=== PATIENT | female | born 1950 | race Caucasian/White ===

== ENCOUNTER 2018-08-06 10:09 | Inpatient (IN) ==
--- NOTE | 2018-08-06 11:26 | EKG Report ---
Test Performed on : 08/06/2018 11:17:38 AM Test Reason : hyperkalemia Blood Pressure : / mmHG Vent. Rate : 084 BPM Atrial Rate : 084 BPM P-R Int : 166 ms QRS Dur : 092 ms QT Int : 378 ms P-R-T Axes : 068 072 094 degrees QTc Int : 446 ms Normal sinus rhythm. Biatrial enlargement Left ventricular hypertrophy ST elevation, consider early repolarization, pericarditis, or injury Abnormal ECG No previous ECGs available Unconfirmed Result
--- NOTE | 2018-08-06 12:05 | Diag Imaging Result Doc PS360 ---
CHEST-1 VIEW - 08/06/2018 INDICATION: hyperkaalemia COMPARISON: None FINDINGS: There is cardiomegaly and mild pulmonary vascular congestion. There is perhaps some minimal blunting of the right lateral costophrenic angle, nonspecific. No substantial infiltrates or edema. IMPRESSION: Cardiomegaly and pulmonary vascular congestion. Electronically signed by Javed Diaz 08/06/2018 12:03 PM
[2018-08-06] MEDS ORDERED: ULTRAM PO PRN (12:17)
[2018-08-06] MEDS ORDERED: TYLENOL PO PRN (12:18)
[2018-08-06 12:23] LABS: MCH 24.7 PG (27-31); MCHC 32.2 g/dL (33-37); MCV 76.8 FL (81-99); MPV 9.7 FL (7.4-10.4); RBC 7.68 XMIL (4.2-5.4); RDW 18.5 % (11.5-14.5); WBC 19.71 X1000 (4.8-10.8)
[2018-08-06] MEDS: D5 1/2 NS 1,000 ML IV SCH (12:54)
[2018-08-06] MEDS ORDERED: KAYEXALATE PO ONE (13:00)
[2018-08-06 13:13] LABS: ALB/GLOB RATIO 1.6; ALBUMIN 4.1 g/dL (3.5-5.0); CALCIUM 10.4 mg/dL (8.8-10.2); CREATININE 1.1 mg/dL (0.5-0.9); POTASSIUM 5.4 mmol/L (3.5-5.1); TOTAL BILIRUBIN 0.37 mg/dL (0.20-1.00); TOTAL PROTEIN 6.6 g/dL (6.3-8.3)
[2018-08-06 13:15] LABS: IRON SATURATION 9 %; TIBC 384 ug/dL; TOTAL IRON 33 ug/dL (49-151); UNBOUND IRON 351 ug/dL (112-346)
[2018-08-06 13:39] LABS: FERRITIN 21 ng/mL (13-150)
[2018-08-06 14:53] LABS: URINE SOURCE CLEAN CATCH
[2018-08-06 15:09] LABS: BILIRUBIN URINE NEGATIVE (NEGATIVE); BLOOD URINE NEGATIVE (NEGATIVE); COLOR YELLOW; GLUCOSE URINE NEGATIVE (NEGATIVE); KETONE URINE NEGATIVE (NEGATIVE); LEUKOCYTES URINE NEGATIVE (NEGATIVE); NITRITE URINE NEGATIVE (NEGATIVE); PROTEIN URINE NEGATIVE (NEGATIVE); SP GRAVITY URINE 1.005; TURBIDITY URINE CLEAR (CLEAR); UR EPITHELIAL CELLS <10 /HPF (<10); URINE BACTERIA NEGATIVE /HPF; URINE RBC <10 /HPF (<10); URINE WBC <10 /HPF (<10); UROBILINOGEN URINE NORMAL (NORMAL)
[2018-08-06] MEDS ORDERED: AMBIEN PO PRN (15:31)
--- NOTE | 2018-08-06 19:06 | HISTORY AND PHYSICAL ---
HISTORY OF PRESENT ILLNESS: Ms. Benites, a 68-year-old white female with a known case of hypertension, has been having generalized weakness, severe dizziness, and intermittent headaches. She was found to have a very high potassium which was 6.5, with severe pancytopenia with RBCs, WBCs, and platelets all increased. She was hospitalized for this reason. She had generalized weakness. SOCIAL HISTORY: Reveal she has a history of smoking about a half to 1 pack of cigarettes per day for last 43 years. Does not drink ALLERGIES: She is not allergic to any medications. PAST SURGICAL HISTORY: Reveals history of bladder repair and hysterectomy. REVIEW OF SYSTEMS: Other than what has been mentioned is noncontributory. MEDICATIONS: She is on lisinopril 10 mg, which is her only medication. REVIEW OF SYSTEMS: Unremarkable. PHYSICAL EXAMINATION: GENERAL: The patient, who is a 68-year-old white female, is alert and oriented. VITAL SIGNS: Reveal temperature normal, pulse 85 per minute, respiratory rate 16 per minute, blood pressure 130/66. HEAD: Normocephalic. Pupils PERRLA. Fundus examination not done. NECK: Supple. JVP normal. ENT examination unremarkable. There is no evidence of lymphadenopathy, thyroid enlargement. EXTREMITIES: No pedal edema, calf tenderness, anemia, cyanosis or clubbing. Pedal pulses well felt. BREAST EXAM: Not done. CHEST: Normal inspection. LUNGS: Clear on auscultation. PMI in the normal position. HEART: Heart sounds normal. No murmur, gallop or rub noted. ABDOMEN: Nondistended. Hernial orifices normal. No guarding, rigidity, free fluid, masses, or organomegaly. Bowel sounds normal. RECTAL: Deferred. NEUROLOGIC: Higher functions, the patient apprehensive. Cranial nerves normal. Motor and sensory system examination unremarkable. Deep tendon reflexes normal. Plantars downgoing. Skull and spine examination normal for age. No cerebellar signs or signs of meningeal irritation. Normal motor exam. SKIN: Unremarkable. IMPRESSION: The patient has hyperkalemia. We will keep her on telemetry. Plan to give Kayexalate and get potassium down. We will also investigate her for significant erythrocytosis, thrombocytosis, and leukocytosis. cc: Angel Lord MD
[2018-08-07 06:44] LABS: AGAP 10; BUN 17 mg/dL (8-22); CALCIUM 8.7 mg/dL (8.8-10.2); CHLORIDE 92 mmol/L (98-107); COSMO 263; CREATININE 0.9 mg/dL (0.5-0.9); ESTIMATED GFR > 60; GLUCOSE 78 mg/dL (70-104); POTASSIUM 4.3 mmol/L (3.5-5.1); SODIUM 131 mmol/L (136-145); TCO2 29 mmol/L (25-35)
[2018-08-07] MEDS ORDERED: PRINIVIL PO SCH (09:00)
--- NOTE | 2018-08-07 09:05 | PROGRESS NOTE ---
DATE: 08/07/2018 SUBJECTIVE: Ms. Benites was admitted yesterday for hyperkalemia. Potassium earlier was 6.5, came down to 5.4, and now it is normal. However, she has hyponatremia and mild hypocalcemia, partly because of the fluid therapy. She has brady cytosis, and she is being followed by Dr. Ramos. She is a heavy smoker, and that could give her increase in the red blood cell count. Overall condition is otherwise stable today. -1 cc: Angel Lord MD
[2018-08-07 12:17] LABS: BASO# 0.13 X1000 (0.0-0.2); BASO% 0.6 % (0.0-0.8); EOS# 0.96 X1000 (0.0-0.7); EOS% 4.7 % (0.0-10.0); HEMATOCRIT 54.6 % (37.0-47.0); IMM GRAN# 0.14 X1000 (0.0-0.04); IMM GRAN% 0.7 % (0.0-0.5); LYMPH# 2.34 X1000 (1.2-3.4); LYMPH% 11.6 % (20.5-51.1); MCH 24.4 PG (27-31); MCHC 31.1 g/dL (33-37); MCV 78.3 FL (81-99); MONO# 1.55 X1000 (0.11-0.59); MONO% 7.7 % (1.7-9.3); MPV 9.9 FL (7.4-10.4); NEUT# 15.12 X1000 (1.4-6.5); NEUT% 74.7 % (42.2-75.2); PLT 655 X1000 (130-400); RBC 6.97 XMIL (4.2-5.4); RDW 17.9 % (11.5-14.5); WBC 20.24 X1000 (4.8-10.8)
[2018-08-07 12:37] LABS: BANDS 4 % (0-1); EOS 3 % (1-10); LYMPHS 11 % (21-51); MONO 8 % (1-9); SEGS 74 % (42-75)
[2018-08-07] MEDS: D5 1/2 NS 1,000 ML IV SCH (13:00)
--- NOTE | 2018-08-07 14:20 | HEMO/ONC PROGRESS NOTE ---
DATE: 08/07/2018 SUBJECTIVE: Patient says she feels slightly better at this time. Patient has no new complaints. OBJECTIVE: Vital Signs: Temperature 97.6 degrees, heart rate 80, respiratory 16, blood pressure 136/77, saturation 99% on room air. General: Patient is awake lying in bed, no acute distress noted. HEENT: Anicteric. Mucous membranes very moist. Cardiovascular: S1, S2. Regular rhythm. Chest: Bilateral breath sounds clear to auscultation. Abdomen: Soft, nontender, bowel sounds present all 4 quadrants. Neurologic: Alert and oriented x3. No focal deficits noted. LABORATORY DATA: White blood cell count 20.24, hemoglobin 17.2, hematocrit 54.6, platelets 655,000, potassium 4.3, BUN 17, creatinine 0.9. ASSESSMENT AND PLAN: 1. Polycythemia: Patient's hemoglobin, hematocrit has slightly improved after therapeutic phlebotomy today hemoglobin 17.2, hematocrit 54.6, patient will receive another therapeutic phlebotomy after remove 250 mL. We will continue to monitor very closely. Labs still pending for further evaluation. Continue to monitor wait for those. 2. Hyperkalemia. Potassium is back to normal today is 4.3. Continue recommendations per primary medical team. Plan of care discussed Dr. Ramos. Dictated by ADELA Guidry for Srinivas Ramos MD cc: ADELA Guidry MD Amit V. Vora, MD
--- NOTE | 2018-08-07 14:25 | HEMO/ONC CONSULTATION ---
DATE: 08/06/2018 CHIEF COMPLAINT: We are being consulted for further evaluation of polycythemia. HISTORY OF PRESENT ILLNESS: Ms. Benites is a 68-year-old female that recently had been having problems with increased amount of headaches, weakness, and generalized dizziness. Was recently seen at her primary care provider's office with these complaints and also found to have an elevated potassium of 6.5 and polycythemia. Due to her symptoms, was admitted for further evaluation and treatment. PAST MEDICAL HISTORY: Hypertension. PAST SURGICAL HISTORY: Bladder repair and hysterectomy. SOCIAL HISTORY: Smokes about a half a pack to a pack of cigarettes per day. Denies any alcohol or illicit drug use. FAMILY HISTORY: Noncontributory. ALLERGIES: No known drug allergies. HOME MEDICATIONS: Lisinopril. REVIEW OF SYSTEMS: Negative unless mentioned in the HPI. PHYSICAL EXAMINATION: Vital Signs: Temperature of 97.7 degrees, heart rate 75, respiratory rate 16, blood pressure 134/62, saturating 96% on room air. General: Patient is awake, lying in bed. No acute distress noted. HEENT: Anicteric. Pupils PERRLA. Mucous membranes appear to be moist. Neck: Supple. Trachea midline. No JVD. Lymph Node Survey: No palpable lymphadenopathy. Chest: Bilateral breath sounds clear to auscultation. Cardiovascular: Normal S1, S2. Regular rate and rhythm. Abdomen: Soft, nontender. Bowel sounds present in all 4 quadrants. No hepatosplenomegaly noted. Skin: Warm, dry, and intact. No petechiae, no clubbing, no rashes, no cyanosis. Neurologic: Alert and oriented x3. No focal deficits noted. LABORATORY DATA: White blood cell count 19.71, hemoglobin 19.0, hematocrit 59.0, platelets 685,000. Potassium 5.4, BUN 18, creatinine 1.1. ASSESSMENT AND PLAN: 1. Polycythemia: Polycythemia workup has been ordered. Some labs are pending at this time. The patient also has had therapeutic phlebotomy of 500 mL today. We are waiting on further lab work at this time. We will continue to monitor her closely. 2. Hyperkalemia: Patient to continue recommendations per her primary medical team. 3. Hypertension: Continue home medications. Continue recommendations per primary medical team. Plan of care was discussed with Dr. Ramos. Dictated by ADELA Guidry for Srinivas Ramos MD Patient seen and examined. As above. We are evaluating her for polycythemia. She drinks plenty of water and minimal caffeinated beverages. She denies DVT or stroke type symptoms. She reports of headache. She denies glandular enlargement in the neck axilla or groin or hepatosplenomegaly. She denies obstructive sleep apnea-type symptoms. We will obtain lab evaluation for polycythemia vera. Proceed with phlebotomy today. Baby ASA daily. Srinivas Ramos M.D. cc: ADELA Guidry MD Amit V. Vora, MD [facility]
[2018-08-07] MEDS ORDERED: NICODERM PATCH TD ONE (18:21)
[2018-08-08 07:05] LABS: BASO# 0.23 X1000 (0.0-0.2); BASO% 1.4 % (0.0-0.8); EOS# 0.94 X1000 (0.0-0.7); EOS% 5.6 % (0.0-10.0); HEMATOCRIT 51.8 % (37.0-47.0); HEMOGLOBIN 16.7 g/dL (12.0-16.0); IMM GRAN# 0.06 X1000 (0.0-0.04); IMM GRAN% 0.4 % (0.0-0.5); LYMPH% 13.7 % (20.5-51.1); MCH 25.2 PG (27-31); MCHC 32.2 g/dL (33-37); MCV 78.1 FL (81-99); MONO# 1.54 X1000 (0.11-0.59); MONO% 9.2 % (1.7-9.3); MPV 9.6 FL (7.4-10.4); NEUT# 11.71 X1000 (1.4-6.5); NEUT% 69.7 % (42.2-75.2); PLT 638 X1000 (130-400); RBC 6.63 XMIL (4.2-5.4); WBC 16.78 X1000 (4.8-10.8)
[2018-08-08 07:49] VITALS: BP 115/68
--- NOTE | 2018-08-08 08:30 | HEMO/ONC PROGRESS NOTE ---
DATE: 08/08/2018 SUBJECTIVE: Patient says she continues to feel better at this time. Patient denies any new complaints. OBJECTIVE: Vital Signs: Temperature 97.4 degrees, heart rate 78, respiratory rate 20, blood pressure 115/68, saturation 96% on room air. General: Patient is awake, lying in bed, no acute distress noted. HEENT: Anicteric. Pupils PERRLA. Mucous membranes moist. Cardiovascular: S1, S2. Regular rate and rhythm. Chest: Bilateral breath sounds clear to auscultation. Abdomen: Soft, nontender. Bowel sounds present all 4 quadrants. Neurologic: Alert and oriented x3. No focal deficits noted. LABORATORY DATA: White count 16.78, hemoglobin 16.7, hematocrit of 51.8, platelets are 638,000. ASSESSMENT AND PLAN: Polycythemia: Hemoglobin and hematocrit continue to improve. The patient is status post 2 therapeutic phlebotomies. Continue to monitor closely for the lab work still pending. Waiting on those labs at this time. OK for discharge from our standpoint. Plan of care discussed with Dr. Ramos. Dictated by ADELA Guidry for Srinivas Ramos MD Patient seen and examined. As above. Srinivas Ramos M.D. cc: ADELA Guidry MD Amit V. Vora, MD MTDD
--- NOTE | 2018-08-08 08:52 | PROGRESS NOTE ---
DATE: 08/08/2018 SUBJECTIVE: Ms. Benites is doing better. She is still very tense so we will put her on Ativan 0.5 mg b.i.d., see if she can tolerate. Her pancytopenia has been down. White count is down to 16.78, hemoglobin is down to 16.7, platelet count down to 638,000. Her electrolyte status is better. Potassium is 4.3, sodium is still 131. We will discharge her today. -3 cc: Angel Lord MD
[2018-08-08] MEDS ORDERED: ATIVAN PO SCH (09:00)
--- NOTE | 2018-08-09 09:27 | DISCHARGE SUMMARY ---
ADMISSION DATE: 08/06/2018 DISCHARGE DATE: 08/08/2018 DIAGNOSIS OF ADMISSION: Ms. Benites was admitted with hyperkalemia as well as polycythemia and pancytosis. LABORATORY DATA: In the hospital chest x-ray revealed presence of cardiomegaly and pulmonary vascular congestion. EKG had revealed normal sinus rhythm, biatrial enlargement, left ventricular hypertrophy, ST elevation, consider early repolarization. LAB DATA: Revealed initial white count was 19.71, hemoglobin was 19, hematocrit 59, platelet count was 685,000. On 08/08/2018 after 2 trials of phlebotomy the white count came down to 16.78, hemoglobin down to 16.7, and platelet count of 638,000. Potassium initially was 6.5 and it did come down to 5.4 and finally 4.3. BUN and creatinine were normal. B12 level was more than 2000. Folate level was more than 40. Erythropoietin levels were somewhat low it was 1.1, normal being 2.6 to 18.5, iron was 33 by total iron-binding capacity was 384, % saturation was 9%. Urinalysis was negative. JAK2 to mutation results were interpreted BC are ABL, no transcripts were detected. COURSE IN THE HOSPITAL: She was given IV fluids. Initially Kayexalate was given. Dr. Ramos was consulted. He did a phlebotomy twice. He wants to follow her later on. IMPRESSION: 1. Pancytosis, possibly polycythemia. 2. Patient has hypertension with hypertensive heart disease. 3. Had hyperkalemia reveals. I will follow her in about 7 days. According to her daughter she has severe anxiety and she needed some medications for stress. We gave her Ativan 0.5 mg b.i.d., 60 tablets. We will see the response. cc: Angel Lord MD
== END 2018-08-08 09:39 | disposition home or self-care (01) | DRG 641 ==
LOC: DIRADM 10:09 → 4N 10:44
PROVIDERS: ADMIT Internal Medicine; ATTEND Internal Medicine
CPT/HCPCS: 71010; 71045; 80048; 80053; 81001; 81206; 81207; 81208; 81270; 82607; 82668; 82728; 82746; 83540; 83550; 83615; 85025; 85027; 85651; 93005; 93010; 99195; A9270

== ENCOUNTER 2019-05-20 09:16 | Inpatient (IN) ==
[2019-05-20] MEDS ORDERED: SOLU-MEDROL IV ONE (10:13)
[2019-05-20] MEDS ORDERED: DUONEB (A & A) INH ONE (10:13)
--- NOTE | 2019-05-20 10:18 | Diag Imaging Result Doc PS360 ---
EXAM: CHEST-PORTABLE INDICATION: cold symptoms TECHNIQUE: One view COMPARISON: 08/06/2018 FINDINGS: There is a right basilar airspace consolidation that obscures the right heart border suggesting pneumonia. There is also likely a component of atelectasis as well. There is no discrete pleural fluid collection or pneumothorax. The cardiac silhouette is borderline to mildly prominent but stable. IMPRESSION: Right basilar airspace consolidation suggesting pneumonia, likely with superimposed atelectasis. Electronically signed by Ervin Davidson 05/20/2019 10:15 AM
[2019-05-20] MEDS ORDERED: ZITHROMAX 500 MG/NS 500 MG/250 ML IVPB IV ONE (10:21)
[2019-05-20 10:25] LABS: URINE SOURCE CLEAN CATCH
[2019-05-20] MEDS ORDERED: ROCEPHIN 1 GM in NS 50 ML IV SCH (10:30)
[2019-05-20 10:31] LABS: BILIRUBIN URINE NEGATIVE (NEGATIVE); BLOOD URINE NEGATIVE (NEGATIVE); COLOR YELLOW; GLUCOSE URINE NEGATIVE (NEGATIVE); KETONE URINE NEGATIVE (NEGATIVE); LEUKOCYTES URINE NEGATIVE (NEGATIVE); NITRITE URINE NEGATIVE (NEGATIVE); PROTEIN URINE NEGATIVE (NEGATIVE); SP GRAVITY URINE 1.008; TURBIDITY URINE CLEAR (CLEAR); UR EPITHELIAL CELLS <10 /HPF (<10); URINE BACTERIA NEGATIVE /HPF; URINE RBC <10 /HPF (<10); URINE WBC <10 /HPF (<10); UROBILINOGEN URINE NORMAL (NORMAL)
[2019-05-20 10:33] LABS: BASO# 0.09 X1000 (0.0-0.2); BASO% 0.4 % (0.0-0.8); EOS# 0.13 X1000 (0.0-0.7); EOS% 0.6 % (0.0-10.0); HEMATOCRIT 41.8 % (37.0-47.0); HEMOGLOBIN 12.7 g/dL (12.0-16.0); IMM GRAN# 0.06 X1000 (0.0-0.04); IMM GRAN% 0.3 % (0.0-0.5); LYMPH# 1.15 X1000 (1.2-3.4); LYMPH% 5.3 % (20.5-51.1); MCH 22.4 PG (27-31); MCHC 30.4 g/dL (33-37); MCV 73.7 FL (81-99); MONO# 1.53 X1000 (0.11-0.59); MPV 9.5 FL (7.4-10.4); NEUT# 18.93 X1000 (1.4-6.5); NEUT% 86.4 % (42.2-75.2); PLT 610 X1000 (130-400); RBC 5.67 XMIL (4.2-5.4); RDW 20.2 % (11.5-14.5); WBC 21.89 X1000 (4.8-10.8)
[2019-05-20 10:40] LABS: AGAP 15; ALB/GLOB RATIO 1.3; ALKALINE PHOSPHATASE 120 U/L (32-104); BUN 16 mg/dL (8-22); CALCIUM 9.3 mg/dL (8.8-10.2); CHLORIDE 93 mmol/L (98-107); COSMO 269; CREATININE 0.9 mg/dL (0.5-0.9); ESTIMATED GFR > 60; GLUCOSE 93 mg/dL (70-104); GOT 29 U/L (10-30); GPT 19 U/L (10-36); POTASSIUM 4.2 mmol/L (3.5-5.1); SODIUM 134 mmol/L (136-145); TCO2 26 mmol/L (25-35); TOTAL BILIRUBIN 0.39 mg/dL (0.20-1.00); TOTAL PROTEIN 7.2 g/dL (6.3-8.3)
--- NOTE | 2019-05-20 11:06 | PROVIDER DOCUMENTATION ---
HPI-Respiratory General - General Chief Complaint: SEPSIS ALERT - D Stated Complaint: FLU SX Time Seen by Provider: 05/20/19 09:22 Source: patient, family Allergies/Adverse Reactions: Patient Allergies Allergy/AdvReac Type Severity Reaction Status Date / Time No Known Allergies Allergy Verified 05/20/19 09:55 Home Medications: Home Medication List Medication Instructions Recorded Confirmed Last Taken Type Lorazepam [Ativan] 0.5 mg PO BID PRN #60 tab 08/08/18 05/20/19 05/20/19 Rx Amlodipine [Norvasc] 1 tab PO DAILY 05/20/19 05/20/19 05/20/19 History Aspirin 1 tab PO DAILY 05/20/19 05/20/19 05/20/19 History Hydroxyurea 1 cap PO DIRECTED 05/20/19 05/20/19 05/20/19 History Zolpidem [Ambien] 1 tab PO HS PRN 05/20/19 05/20/19 Unknown History - History of Present Illness-Resp Nature of Presenting Problem: Presents to the with complaints of cough and congestion that has been going on for the last few weeks. She states she tried taking amoxicillin from her DrDr Lord but it has not helped and she feels bad still. She endorses a cough with yellowish sputum. She denies any fevers or chills. She is still an everyday smoker. Review of Systems - Adult - REVIEW OF SYSTEMS - ADULT Constitutional: reports: see HPI, chills. denies: fever Eyes: reports: no symptoms reported Ears, Nose, Mouth & Throat: reports: see HPI Respiratory: reports: see HPI, cough, excessive sputum production, shortness of breath Gastrointestinal: reports: no symptoms reported Genitourinary: reports: no symptoms reported Musculoskeletal: reports: no symptoms reported Integumentary: reports: no symptoms reported Neurological: reports: no symptoms reported Psychiatric: reports: no symptoms reported Endocrine: reports: no symptoms reported Hematologic/Lymphatic: reports: no symptoms reported Allergic/Immunologic: reports: no symptoms reported All Other Systems: Reviewed and Negative Past History - Adult - PAST MEDICAL HISTORY-ADULT Review of Records: reports: Old Records Reviewed Physical Exam-General - CONSTITUTIONAL General Appearance: appears well, alert, no apparent distress - EYES Eyes: PERRL/EOMI - HEAD, EARS, NOSE, MOUTH & THROAT HENMT: normocephalic/atraumatic - NECK Neck: supple, normal inspection - RESPIRATORY Respiratory: chest non-tender, no respiratory distress, no accessory muscle use, decreased breath sounds (mild bilaterally), increased rate - CARDIOVASCULAR Cardiovascular: normal peripheral pulses, regular rate, rhythm, no murmur - GASTROINTESTINAL (ABDOMEN) Abdominal Exam: normal bowel sounds, non tender, soft - MUSCULOSKELETAL Extremity: normal inspection - SKIN Integumentary: normal color, warm/dry - NEUROLOGIC Neurologic: grossly normal - PSYCHIATRIC Psych/Mental Status: normal mood/affect, oriented x 3 - HEART Score HEART Score: History: Slightly Suspicious HEART Score: ECG: Normal HEART Score: Age: > or = 65 Years HEART Score: Risk Factors for Atherosclerotic Disease: 1 or 2 Risk Factors HEART Score: Troponin: < or = Normal Limit Total HEART Score:: 3 Progress - PLAN OF CARE/RESULTS Progress/Plan/Lab Results: Vital Signs - 8 hr 05/20/19 11:00 05/20/19 11:03 05/20/19 11:08 Pulse Rate 76 75 74 Respiratory Rate 26 H 16 20 Blood Pressure 128/67 142/68 O2 Sat by Pulse Oximetry 98 100 100 05/20/19 11:15 05/20/19 11:30 Pulse Rate 79 77 Respiratory Rate 24 25 H Blood Pressure O2 Sat by Pulse Oximetry 98 97 05/20/19 09:21 Influenza Screen - Final Nasopharyngeal Laboratory Results - last 24 hr 05/20/19 05/20/19 05/20/19 09:45 10:15 10:15 WBC 21.89 H RBC 5.67 H Hgb 12.7 Hct 41.8 MCV 73.7 L MCH 22.4 L MCHC 30.4 L RDW Std Deviation 20.2 H Plt Count 610 H MPV 9.5 Immature Gran % (Auto) 0.3 Neut % (Auto) 86.4 H Lymph % (Auto) 5.3 L [place] % (Auto) 7.0 Eos % (Auto) 0.6 Baso % (Auto) 0.4 Immature Gran # (Auto) 0.06 H Neut # (Auto) 18.93 H Lymph # (Auto) 1.15 L [place] # (Auto) 1.53 H Eos # (Auto) 0.13 Baso # (Auto) 0.09 PT INR PTT (Actin FS) Sodium 134 L Potassium 4.2 Chloride 93 L Carbon Dioxide 26 Anion Gap 15 BUN 16 Creatinine 0.9 Estimated GFR/1.73 m2 > 60 BUN/Creatinine Ratio 18 Glucose 93 Calculated Osmolality 269 Calcium 9.3 Total Bilirubin 0.39 AST 29 ALT 19 Alkaline Phosphatase 120 H Creatine Kinase Troponin T [id number] Pept Total Protein 7.2 Albumin 4.0 Globulin 3.2 Albumin/Globulin Ratio 1.3 Plasma Lactate Urine Source CLEAN CATCH Urine Color YELLOW Urine Turbidity CLEAR Urine pH 6.0 Ur Specific [place] 1.008 Urine Protein NEGATIVE Ur Glucose (Stick) NEGATIVE Ur Ketones (Stick) NEGATIVE Urine Blood NEGATIVE Urine Nitrite NEGATIVE Urine Bilirubin NEGATIVE Urobilinogen Dipstick NORMAL Urine Leukocytes NEGATIVE Urine WBC (Auto) <10 Urine RBC (Auto) <10 U Epithel Cells (Auto) <10 Urine Bacteria (Auto) NEGATIVE 05/20/19 05/20/19 05/20/19 10:15 10:15 10:15 WBC RBC Hgb Hct MCV MCH MCHC RDW Std Deviation Plt Count MPV Immature Gran % (Auto) Neut % (Auto) Lymph % (Auto) [place] % (Auto) Eos % (Auto) Baso % (Auto) Immature Gran # (Auto) Neut # (Auto) Lymph # (Auto) [place] # (Auto) Eos # (Auto) Baso # (Auto) PT 14.6 INR 1.12 PTT (Actin FS) 37.5 Sodium Potassium Chloride Carbon Dioxide Anion Gap BUN Creatinine Estimated GFR/1.73 m2 BUN/Creatinine Ratio Glucose Calculated Osmolality Calcium Total Bilirubin AST ALT Alkaline Phosphatase Creatine Kinase 56 Troponin T [id number] Pept 2584 H Total Protein Albumin Globulin Albumin/Globulin Ratio Plasma Lactate Urine Source Urine Color Urine Turbidity Urine pH Ur Specific [place] Urine Protein Ur Glucose (Stick) Ur Ketones (Stick) Urine Blood Urine Nitrite Urine Bilirubin Urobilinogen Dipstick Urine Leukocytes Urine WBC (Auto) Urine RBC (Auto) U Epithel Cells (Auto) Urine Bacteria (Auto) 05/20/19 05/20/19 10:15 10:32 WBC RBC Hgb Hct MCV MCH MCHC RDW Std Deviation Plt Count MPV Immature Gran % (Auto) Neut % (Auto) Lymph % (Auto) [place] % (Auto) Eos % (Auto) Baso % (Auto) Immature Gran # (Auto) Neut # (Auto) Lymph # (Auto) [place] # (Auto) Eos # (Auto) Baso # (Auto) PT INR PTT (Actin FS) Sodium Potassium Chloride Carbon Dioxide Anion Gap BUN Creatinine Estimated GFR/1.73 m2 BUN/Creatinine Ratio Glucose Calculated Osmolality Calcium Total Bilirubin AST ALT Alkaline Phosphatase Creatine Kinase Troponin T < 0.010 [id number]-Sbypwfkzaoz Pept Total Protein Albumin Globulin Albumin/Globulin Ratio Plasma Lactate 1.0 Urine Source Urine Color Urine Turbidity Urine pH Ur Specific [place] Urine Protein Ur Glucose (Stick) Ur Ketones (Stick) Urine Blood Urine Nitrite Urine Bilirubin Urobilinogen Dipstick Urine Leukocytes Urine WBC (Auto) Urine RBC (Auto) U Epithel Cells (Auto) Urine Bacteria (Auto) Orders Category Date [facility] Routine AdmDCTranf 05/20/19 12:39 Active Activity - Up Ad Tran ORDERED Care 05/20/19 12:39 Active Neurological Check PRN Care 05/20/19 12:39 Active Notify MD of + Sepsis Screen NOW Care 05/20/19 10:42 Active Notify Physician As Ordered Care 05/20/19 10:42 Active Resuscitation Status Routine Care 05/20/19 11:23 Ordered Vital Signs Order Q 4-HR ASSESS Care 05/20/19 12:39 Active Z-Document. for Tele Applied ORDERED Care 05/20/19 12:39 Active Heart Healthy Diet Diet 05/20/19 12:39 Active CHEST-PORTABLE [RAD] Stat Exams 05/20/19 09:38 Completed BLOOD CULTURE [BLDCUL] Stat Lab 05/20/19 10:15 Results BNP [PRO B-NATRIURETIC PEPTIDE] Stat Lab 05/20/19 10:15 Completed CBC WITH ELECTRONIC DIFF [HEME] Stat Lab 05/20/19 10:15 Completed CK PROFILE [SP CHEM] Stat Lab 05/20/19 10:15 Completed CMP [COMPREHENSIVE METABOLIC PANEL] [CHEM] Stat Lab 05/20/19 10:15 Completed INFLUENZA SCREEN A/B Stat Lab 05/20/19 09:21 Completed LACTATE, PLASMA [CHEM] Lab 05/20/19 15:30 Completed LACTATE, PLASMA [CHEM] Lab 05/20/19 17:35 Completed LACTATE, PLASMA [CHEM] Q3H Lab 05/20/19 10:32 Completed PROTIME WITH INR [COAG] Stat Lab 05/20/19 10:15 Completed PTT [COAG] Stat Lab 05/20/19 10:15 Completed TROPONIN T Stat Lab 05/20/19 10:15 Completed URINALYSIS W/POSS RFLX CULT [URINALYSIS] Stat Lab 05/20/19 09:45 Completed 0.9% Sodium Chloride Inj [Ns] 1,000 ml Med 05/20/19 12:39 Active IV 100 mls/hr 0.9% Sodium Chloride Inj [Ns] 1,000 ml Med 05/20/19 11:11 Discontinued IV 999 mls/hr 0.9% Sodium Chloride Inj [Ns] 500 ml Med 05/20/19 11:12 Discontinued IV 999 mls/hr Acetaminophen [Tylenol] Med 05/20/19 12:39 Active 650 mg PO Q6H PRN PRN Albuterol 2.5MG/Ipratrop 0.5MG [Duoneb (A & A)] Med 05/20/19 10:13 Discontinued 3 ml INH NOW ONE Albuterol 2.5MG/Ipratrop 0.5MG [Duoneb (A & A)] Med 05/20/19 12:39 Active 3 ml INH RTQ4H Azithromycin 500 mg/Ns [Zithromax 500 mg/Ns] Med 05/20/19 10:21 Discontinued 500 mg in 250 ml IV NOW Azithromycin 500 mg/Ns [Zithromax 500 mg/Ns] Med 05/21/19 09:00 Active 500 mg in 250 ml IV Q24H CefTRIAXONE [Rocephin] 1 gm Med 05/20/19 10:30 Discontinued 0.9% Sodium Chloride Inj [Ns] 50 ml IV Q24H Methylprednisolone Sod Succ [Solu-Medrol] Med 05/20/19 10:13 Discontinued 125 mg IV NOW ONE Methylprednisolone Sod Succ [Solu-Medrol] Med 05/20/19 18:00 Discontinued 125 mg IV Q8H Ondansetron [Zofran] Med 05/20/19 12:39 Active 4 mg IV Q4H PRN PRN Aerosol Treatments Routine Oth 05/20/19 10:13 Completed Aerosol Treatments Routine Oth 05/20/19 12:39 Completed Aerosol Treatments Stat Oth 05/20/19 10:13 Completed Aerosol Treatments Stat Oth 05/20/19 12:39 Completed Oxygen Device Stat Oth 05/20/19 10:42 Completed Telemetry [OM.EQ] Routine Oth 05/20/19 12:39 Active EKG [EKG] Stat Ther 05/20/19 10:23 Draft Transfer/Admit Order [TRANSFER] Routine Transfer 05/20/19 11:23 Completed Result Diagrams: 05/20/19 10:15 05/20/19 10:15 - EKG 1 Time of EKG reading by physician:: 10:29 EKG Read and Signed by:: Lizbet Lees EKG Interpretation (*Must complete 3 of following elements*): Abnormal Rate: 74 Rhythm: NSR QRS: LVH ST Wave: non-specific ST changes - XRAY 1 XRAY Study: Chest (EXAM: CHEST-PORTABLE INDICATION: cold symptoms TECHNIQUE: One view COMPARISON: 08/06/2018 FINDINGS: There is a right basilar airspace consolidation that obscures the right heart border suggesting pneumonia. There is also likely a component of atelectasis as well. There is no discrete pleural fluid collection or pneumothorax. The cardiac silhouette is borderline to mildly prominent but stable. IMPRESSION: Right basilar airspace consolidation suggesting pneumonia, likely with superimposed atelectasis. Electronically signed by Ervin Davidson 05/20/2019 10:15 AM) - CONSULTS/PCP/HOSPITALIST Notification #1 *Consult/PCP/Hospitalist*: Dr Lord Time Discussed: 11:20 Consult Disposition: Admit (ok with azithro and rocephin and floor with telemetry, will see this afternoon. Wants orders placed for him.) Departure - Departure Date of Disposition Decision: 05/20/19 Time of Disposition Decision: 11:22 DIAGNOSIS: Pneumonia, Sepsis Disposition: ADMITTED INPATIENT 09 Certified Medical Emergency: Emergent Condition: Stable - Critical Care Note This patient required my direct & personal management of CC.: No Attestation - Physician/ CHENCHO Attestation Patient care was provided by Advanced Practice Provider:: No The physician spent face to face time with patient:: Yes Advanced Practice Provider documentation review:: Supervising physician onsite and consulted in the evaluation and care of this patient. The physician did have a face to face encounter with the patient.
[2019-05-20] MEDS ORDERED: NS 1,000 ML IV ONE ×2 (11:11→12:39)
[2019-05-20] MEDS ORDERED: NS 500 ML IV ONE (11:12)
[2019-05-20 11:20] LABS: INR 1.12; PROTIME 14.6 Seconds (11.0-16.0)
[2019-05-20 11:21] LABS: PTT 37.5 Seconds (22.3-41.8)
--- NOTE | 2019-05-20 11:23 | EKG Report ---
Test Performed on : 05/20/2019 10:25:50 AM Test Reason : shortness of breath Blood Pressure : / mmHG Vent. Rate : 074 BPM Atrial Rate : 074 BPM P-R Int : 162 ms QRS Dur : 086 ms QT Int : 408 ms P-R-T Axes : 051 052 096 degrees QTc Int : 452 ms Normal sinus rhythm. Voltage criteria for left ventricular hypertrophy Nonspecific T wave abnormality Abnormal ECG When compared with ECG of 06-AUG-2018 11:17, T wave amplitude has decreased in Inferior leads T wave inversion now evident in Lateral leads Unconfirmed Result
[2019-05-20] MEDS ORDERED: ZOFRAN IV PRN (12:39)
[2019-05-20] MEDS: DUONEB (A & A) INH SCH ×4 (16:18→23:30)
[2019-05-20] MEDS ORDERED: SOLU-MEDROL IV SCH (18:00)
[2019-05-20] MEDS ORDERED: ATIVAN PO PRN (18:27)
--- NOTE | 2019-05-20 19:53 | HISTORY AND PHYSICAL ---
HISTORY OF PRESENT ILLNESS: Ms. Benites is a 68-year-old white female, known case of hypertension, chronic anxiety, polycythemia, history of chronic smoking, and recurrent hyperkalemia, came to the office about 10 days ago. She had mild upper respiratory tract infection. She was given oral antibiotics and was discharged. However, she did not feel good and continued to get worse. She did notify me and came to the emergency room today where she was found to have pneumonia on the right side. Ms. Benites had been getting some shortness of breath. She has mild COPD and has polycythemia, and she is followed by Dr. Ramos. PAST SURGICAL HISTORY: Reveals history of partial hysterectomy and cataract surgery. SOCIAL HISTORY: She is a chronic smoker, and now smokes about half a pack of cigarettes per day. However, she says she is not smoking since she has been sick. REVIEW OF SYSTEMS: Otherwise noncontributory. ALLERGIES: She is not allergic to any medications. MEDICATIONS: Include: 1. Zolpidem. 2. Lorazepam. 3. Hydroxyurea for thrombocytosis. 4. Aspirin. 5. Amlodipine 5 mg daily. PHYSICAL EXAMINATION: VITAL SIGNS: Temperature normal, pulse 91 per minute, respiratory rate 20 per minute, blood pressure 124/52. HEAD: Normocephalic. EYES: PERRLA. Fundus examination normal. NECK: Supple. JVP normal. ENT: Examination unremarkable. There is no evidence of lymphadenopathy, thyroid enlargement, pedal edema, calf tenderness, anemia, cyanosis or clubbing. Pedal pulses well felt. BREASTS: Exam not done. CHEST: Normal inspection. LUNGS: Bilateral basilar rales, more on the right side. HEART: PMI in the normal position. There is a short systolic murmur at the apex. No gallop or rub noted. ABDOMEN: Nondistended. Hernial orifices normal. No guarding, rigidity, free fluid, masses, or organomegaly. Bowel sounds normal. RECTAL: Deferred. BRICK MASON: Higher functions normal. Cranial nerves normal. Motor and sensory system examination unremarkable. Deep tendon reflexes normal. Plantars downgoing. SKULL AND SPINE: Examination normal for age. No cerebellar signs or signs of meningeal irritation. Locomotor exam and skin exam unremarkable. CLINICAL IMPRESSION: 1. Pneumonia on the right side. The patient's proBNP is elevated. She has a large systolic murmur. 2. History of hypertension, probably in mild congestive heart failure. PLAN: Will try to start the intravenous antibiotics after blood cultures and get an echocardiogram. cc: Angel Lord MD
[2019-05-20] MEDS: HYDREA PO SCH (19:58)
[2019-05-20] MEDS: ROCEPHIN 2 GM in NS 50 ML IV SCH (21:49)
[2019-05-20] MEDS: AMBIEN PO PRN (21:49)
[2019-05-21] MEDS: DUONEB (A & A) INH SCH ×6 (03:40→23:20)
--- NOTE | 2019-05-21 09:56 | PROGRESS NOTE ---
DATE: 05/21/2019 Ms. Benites is recovering from pneumonia. She is on azithromycin as well as Rocephin IV. She has some element of congestive heart failure. We are doing the echocardiogram on her today. She is recovering well. Vital signs are stable. Will continue with the current management. -5 cc: Angel Lord MD
[2019-05-21] MEDS: NICODERM PATCH TD SCH (09:59)
[2019-05-21] MEDS: ASPIRIN PO SCH (09:59)
[2019-05-21] MEDS: NORVASC PO SCH (09:59)
[2019-05-21] MEDS: ZITHROMAX 500 MG/NS 500 MG/250 ML IVPB IV SCH (09:59)
--- NOTE | 2019-05-21 14:20 | ECHO REPORT ---
ORDER DATE: 05/20/2019 INDICATIONS: Murmur, CHF. FINDINGS: 1. The right atrium appears normal in size at 3.2 cm. 2. Mild tricuspid regurgitation. RV systolic pressure of 61 suggesting pulmonary hypertension. 3. Normal RV size and systolic function. 4. No significant pulmonic insufficiency. 5. Mild left atrial enlargement with a dimension of 4.4 cm. 6. No mitral prolapse. Mild mitral regurgitation. 7. Normal LV size. End-diastolic dimension is between 3.8 and 4 cm. 8. Severe left ventricular hypertrophy with an interventricular septal wall thickness on the order of 1.9 to 2 cm. Hyperdynamic LV systolic function with an estimated EF greater than 70%. 9. Aortic valve appears somewhat sclerotic, but does not appear stenotic. There is mild aortic insufficiency. There is a left ventricular outflow tract gradient at peak of 119 mmHg. I do not see any clear evidence of systolic anterior motion of the mitral leaflets. 10. The aortic root appears somewhat dilated at 4.5 cm. 11. There is no pericardial effusion identified. cc: MD Angel Ruff MD
[2019-05-21] MEDS: PHENERGAN WITH CODEINE LIQUID PO PRN (17:47)
[2019-05-21] MEDS: ROCEPHIN 2 GM in NS 50 ML IV SCH (21:42)
[2019-05-21] MEDS: AMBIEN PO PRN (21:43)
[2019-05-21] MEDS ORDERED: PEPCID PO PRN (22:42)
[2019-05-22] MEDS: DUONEB (A & A) INH SCH ×6 (03:55→23:30)
[2019-05-22] MEDS: TYLENOL PO PRN ×2 (07:45→18:33)
[2019-05-22] MEDS: ZITHROMAX 500 MG/NS 500 MG/250 ML IVPB IV SCH (10:01)
[2019-05-22] MEDS: NICODERM PATCH TD SCH (10:01)
[2019-05-22] MEDS: ASPIRIN PO SCH (10:01)
[2019-05-22] MEDS: NORVASC PO SCH (10:01)
[2019-05-22] MEDS ORDERED: MILK OF MAGNESIA PO ONE (10:15)
--- NOTE | 2019-05-22 10:56 | PROGRESS NOTE ---
DATE: 05/22/2019 SUBJECTIVE: The patient denies having any acute complaints except for having some cough and constipation. OBJECTIVE: Vital Signs: Temperature 98.5 degrees, pulse 96 per minute, respiratory rate 18 per minute, blood pressure 127/53, pulse oximetry 94% on 3 L of oxygen via nasal cannula. General: Patient is alert and oriented x3. She does not appear to be in any acute distress. Cardiovascular System: First and second heart sounds are audible with regular rhythm. Respiratory System: Bilateral lung air entry is moderately decreased, but there are no rales or rhonchi present on auscultation. Abdomen: Soft and nontender on palpation. Normal bowel sounds are present. DIAGNOSTIC DATA: CBC shows WBC count of 21.89 with 86.4% neutrophils. Rest of the CBC is nondiagnostic. Comprehensive metabolic panel done 2 days ago has been nondiagnostic. IMPRESSION: 1. Right lower lobe pneumonia. 2. Hypertension with diastolic congestive heart failure that has been stable. PLAN: The patient will continue to get ceftriaxone along with azithromycin intravenously, and we are going to continue with supportive care. She has been having some constipation for which I advised her to have a single dose of MOM today. She does have some cough medicine that is codeine with promethazine to be taken on as-needed basis for severe cough. We will continue with bronchodilators and supportive care. I am going to have a repeat CBC tomorrow to reevaluate her leukocytosis. Further recommendations will be given as per hospital course. cc: MD Angel Burciaga MD
[2019-05-22] MEDS: PHENERGAN WITH CODEINE LIQUID PO PRN ×2 (12:03→19:28)
[2019-05-22] MEDS: HYDREA PO SCH ×2 (17:23→18:31)
[2019-05-22] MEDS: ROCEPHIN 2 GM in NS 50 ML IV SCH (20:44)
[2019-05-22] MEDS: AMBIEN PO PRN (20:51)
[2019-05-23] MEDS: DUONEB (A & A) INH SCH ×6 (03:23→23:05)
--- NOTE | 2019-05-23 07:11 | Diag Imaging Result Doc PS360 ---
EXAM: CHEST-PORTABLE 05/23/2019 HISTORY: Pneumonia TECHNIQUE: AP portable at 0544 COMMENT: There are bilateral pleural effusions. This is worse than on 05/20/2019. There is bibasilar atelectasis versus pneumonia. IMPRESSION: Worsened pleural effusions and basilar atelectasis. Possibility of superimposed pneumonia or pulmonary edema cannot be excluded. Electronically signed by Driss Portillo 05/23/2019 7:09 AM
[2019-05-23 07:52] LABS: BASO# 0.15 X1000 (0.0-0.2); BASO% 0.9 % (0.0-0.8); EOS# 0.43 X1000 (0.0-0.7); EOS% 2.5 % (0.0-10.0); HEMATOCRIT 35.7 % (37.0-47.0); HEMOGLOBIN 10.4 g/dL (12.0-16.0); IMM GRAN# 0.06 X1000 (0.0-0.04); IMM GRAN% 0.4 % (0.0-0.5); LYMPH# 1.12 X1000 (1.2-3.4); LYMPH% 6.6 % (20.5-51.1); MCH 22.4 PG (27-31); MCHC 29.1 g/dL (33-37); MCV 76.9 FL (81-99); MONO# 1.28 X1000 (0.11-0.59); MONO% 7.5 % (1.7-9.3); MPV 9.4 FL (7.4-10.4); NEUT# 13.92 X1000 (1.4-6.5); NEUT% 82.1 % (42.2-75.2); PLT 750 X1000 (130-400); RBC 4.64 XMIL (4.2-5.4); WBC 16.96 X1000 (4.8-10.8)
[2019-05-23 08:22] LABS: AGAP 10; ALB/GLOB RATIO 1.2; ALBUMIN 3.2 g/dL (3.5-5.0); ALKALINE PHOSPHATASE 94 U/L (32-104); BUN 18 mg/dL (8-22); CALCIUM 8.8 mg/dL (8.8-10.2); CHLORIDE 99 mmol/L (98-107); COSMO 275; CREATININE 0.7 mg/dL (0.5-0.9); ESTIMATED GFR > 60; GLUCOSE 88 mg/dL (70-104); GOT 23 U/L (10-30); GPT 19 U/L (10-36); POTASSIUM 4.7 mmol/L (3.5-5.1); SODIUM 137 mmol/L (136-145); TCO2 28 mmol/L (25-35); TOTAL BILIRUBIN < 0.15 mg/dL (0.20-1.00); TOTAL PROTEIN 5.8 g/dL (6.3-8.3)
[2019-05-23] MEDS: NICODERM PATCH TD SCH (08:28)
[2019-05-23] MEDS: ASPIRIN PO SCH (08:28)
[2019-05-23] MEDS: NORVASC PO SCH (08:28)
[2019-05-23] MEDS: ZITHROMAX 500 MG/NS 500 MG/250 ML IVPB IV SCH (08:28)
[2019-05-23] MEDS ORDERED: LASIX IV ONE (08:31)
[2019-05-23] MEDS ORDERED: LINZESS PO ONE (08:32)
--- NOTE | 2019-05-23 08:53 | PROGRESS NOTE ---
DATE: 05/23/2019 SUBJECTIVE: Ms Benites is not feeling well. She says she has constipation. She has some shortness of breath. General condition is unchanged. DIAGNOSTIC DATA: Chest x-ray shows worsening of the chest x-ray with slight worsening of the pleural effusion, on the right side basilar atelectasis that could be pneumonia secondary from pulmonary edema. PLAN: We will get a Cardiology consult today. cc: Angel Lord MD
--- NOTE | 2019-05-23 09:03 | Diag Imaging Result Doc PS360 ---
EXAM: CHEST-2 VIEWS HISTORY: pneumonia TECHNIQUE: Two views COMPARISON: 5:54 AM FINDINGS: The lungs are hyperexpanded. There are small bilateral pleural effusions with basilar atelectasis. There may be underlying infiltrates as well. Overall the lungs markings are less pronounced than they were on the earlier film. IMPRESSION: Mild improvement. Electronically signed by Elton Rock 05/23/2019 9:01 AM
[2019-05-23 09:50] LABS: ALLEN TEST YES; BE 3.4 mmoll (-3.0-3.0); BLOOD TYPE ARTERIAL; HCO3-(ACT) 27.5 mmoll (20.0-26.0); METHB 0.8 % (0.0-1.5); O2(CT) 13.6 mL/dL (15.0-23.0); O2HB 91.9 % (95.0-99.0); PO2(98.6) 58 mmHg (60-100); SAMPLE BLOOD; THB 10.5 g/dL (11.5-17.4); pH(98.6) 7.37 (7.35-7.45)
[2019-05-23 09:52] LABS: MODALITY CANNULA; PCO2(98.6) 51 mmHg (35-45)
[2019-05-23] MEDS: TYLENOL PO PRN (10:07)
[2019-05-23] MEDS: PHENERGAN WITH CODEINE LIQUID PO PRN (10:08)
--- NOTE | 2019-05-23 13:26 | CARDIOLOGY CONSULTATION ---
DATE: 05/23/2019 REASON FOR CONSULTATION: The patient is admitted with pneumonia. Echocardiogram revealed hypertrophic cardiomyopathy. Cardiology was consulted. HISTORY OF PRESENT ILLNESS: Ms. Benites is a 68-year-old lady with history of hypertension, polycythemia, chronic smoking, had mild upper respiratory tract infection, was given oral antibiotics and discharged home. She does not feel well. Continued to worsen and she came to the emergency room, was admitted, was noted to have right-sided pneumonia. Patient is receiving antibiotics. From a cardiac standpoint, no previous cardiac history. She has history of a murmur and hypertension. Denies chest pain suggestive of angina. However, prior to this over the last few years she has noticed shortness of breath not associated with any orthopnea, paroxysmal nocturnal dyspnea. There is no history of palpitations. She has had features of dizziness, but no lj syncopal episodes in the past. No family history of any hypertrophic cardiomyopathy. REVIEW OF SYSTEM: A 14-point review of systems was done. GI System: There is no history of nausea, vomiting, diarrhea. There is no history of hematemesis or melena. Central nervous system: No focal weakness to suggest a CVA or TIA. System: There is no dysuria or hematuria. Respiratory System: As above. PAST MEDICAL HISTORY: 1. Hypertension. 2. Anxiety disorder. 3. Polycythemia. 4. History of chronic smoking. HOME MEDICATIONS: Include lorazepam hydroxyurea for thrombocytosis, aspirin, amlodipine 5 mg, Zolpidem. Currently she is on antibiotics with Zithromax and ceftriaxone. PHYSICAL EXAMINATION: Vital Signs: Blood pressure 124/50. Cardiovascular System: Jugular venous pressure was normal. First and second heart sounds were heard. There was loud midsystolic murmur. Respiratory System: Normal air entry. There was scattered wheeze on the right side. Abdomen: Soft, nontender. There was no guarding or rigidity. Bowel sounds were heard. Central nervous system: Alert and was moving all 4 extremities. Extremities: Examination of extremities revealed no pedal edema. HEENT: Atraumatic, normocephalic. Pupils were equal and reacting to light. LABORATORY EXAMINATION: Sodium 137, potassium 4.7. BUN 18 creatinine 0.7. Liver function tests normal. ProBNP was elevated at 2584. Serum ferritin level in the past was normal. Cardiac enzymes unremarkable. IMAGING STUDIES: Electrocardiogram revealed normal sinus rhythm, left ventricular hypertrophy. WBC when she came in was 21.89 with a hemoglobin of 12.7, hematocrit of 41, platelet count of 610. Chest x-ray on admission suggestive of pneumonia, right lung. ASSESSMENT AND PLAN: Ms. Debo Benites is a 68-year-old lady with history of hypertension, polycythemia, chronic anxiety, who is admitted with pneumonia. Her echocardiogram revealed hypertrophic hyperdynamic left ventricular systolic function estimated at 70% with severe left ventricular hypertrophy with an interventricular septum thickness of 1.9 to 2 cm. The left ventricular outflow tract gradient was 119. She also had pulmonary artery systolic pressure of 60 mmHg. From a cardiac standpoint, this appears to be hypertrophic cardiomyopathy. As far as previous cardiac symptoms are concerned, she has had shortness of breath and some dizziness, but no lj syncopal episodes in the past. Her ferritin level was normal. We will check a thyroid profile as well as to rule out infiltrative process will check urinary serum electrophoresis. As far as medications are concerned, we will discontinue the Norvasc which she is taking 5 mg twice daily, and put her on verapamil 180 mg to be taken daily. I will see her back as an outpatient. We will plan for further studies and evaluate her symptoms as outpatient. She may also need a 30 day loop monitor in addition to other testing. We will also plan for an Cardiac MRI as an outpatient. Thank you for the consult. We will follow hospital course. cc: MD Angel Valenzuela MD [facility] SERVICESKezia
[2019-05-23] MEDS: AMBIEN PO PRN (21:52)
[2019-05-23] MEDS: ROCEPHIN 2 GM in NS 50 ML IV SCH (21:54)
[2019-05-24] MEDS: DUONEB (A & A) INH SCH ×6 (03:40→23:30)
[2019-05-24] MEDS: PHENERGAN WITH CODEINE LIQUID PO PRN ×2 (06:30→18:45)
[2019-05-24 07:44] LABS: AGAP 10; BUN 18 mg/dL (8-22); CALCIUM 8.9 mg/dL (8.8-10.2); CHLORIDE 95 mmol/L (98-107); COSMO 281; CREATININE 0.7 mg/dL (0.5-0.9); ESTIMATED GFR > 60; GLUCOSE 119 mg/dL (70-104); POTASSIUM 4.9 mmol/L (3.5-5.1); SODIUM 139 mmol/L (136-145); TCO2 34 mmol/L (25-35)
[2019-05-24] MEDS: ISOPTIN SR PO SCH (09:11)
[2019-05-24] MEDS: ZITHROMAX 500 MG/NS 500 MG/250 ML IVPB IV SCH (09:11)
[2019-05-24] MEDS: NICODERM PATCH TD SCH (09:11)
[2019-05-24] MEDS: ASPIRIN PO SCH (09:11)
[2019-05-24] MEDS ORDERED: DULCOLAX PR ONE (10:20)
--- NOTE | 2019-05-24 10:39 | PROGRESS NOTE ---
DATE: 05/24/2019 Ms. Benites is doing somewhat better. She has constipation. She has congestive heart failure, and she has hypertrophic cardiomyopathy as per the cardiology opinion. She is being worked up for that. The echocardiogram shows presence of significant left ventricular hypertrophy. We are going to continue to watch her, give her Lasix 40 mg IV daily. -5 cc: Angel Lord MD
[2019-05-24] MEDS: HYDREA PO SCH (18:19)
[2019-05-24] MEDS: ROCEPHIN 2 GM in NS 50 ML IV SCH (21:59)
[2019-05-24] MEDS: AMBIEN PO PRN (22:09)
[2019-05-25] MEDS: DUONEB (A & A) INH SCH ×6 (03:45→23:24)
[2019-05-25] MEDS: ZITHROMAX 500 MG/NS 500 MG/250 ML IVPB IV SCH (08:27)
[2019-05-25] MEDS: NICODERM PATCH TD SCH (08:27)
[2019-05-25] MEDS: LASIX IV SCH (08:28)
[2019-05-25] MEDS: ISOPTIN SR PO SCH (08:28)
[2019-05-25] MEDS: ASPIRIN PO SCH (08:28)
--- NOTE | 2019-05-25 13:44 | PROGRESS NOTE ---
DATE: 05/25/2019 She is recovering from pneumonia and right-sided pleural effusion and congestive heart failure. She has hypertrophic cardiomyopathy. Recently, we did protein electrophoresis studies which revealed hypoalbuminemia and low total proteins, but otherwise it is stable. We are going to repeat the chest x-ray on her. -7 cc: Angel Lord MD
[2019-05-25] MEDS: PHENERGAN WITH CODEINE LIQUID PO PRN (14:09)
[2019-05-25] MEDS: AMBIEN PO PRN (21:09)
[2019-05-25] MEDS: ROCEPHIN 2 GM in NS 50 ML IV SCH (21:46)
[2019-05-26] MEDS: DUONEB (A & A) INH SCH ×6 (03:35→22:59)
[2019-05-26] MEDS: PHENERGAN WITH CODEINE LIQUID PO PRN ×2 (05:14→23:01)
[2019-05-26] MEDS: ASPIRIN PO SCH (08:18)
[2019-05-26] MEDS: NICODERM PATCH TD SCH (08:19)
[2019-05-26] MEDS: ZITHROMAX 500 MG/NS 500 MG/250 ML IVPB IV SCH (08:19)
[2019-05-26] MEDS: LASIX IV SCH (08:19)
[2019-05-26] MEDS: ISOPTIN SR PO SCH (08:19)
[2019-05-26 08:29] LABS: AGAP 7; BUN 29 mg/dL (8-22); CALCIUM 9.2 mg/dL (8.8-10.2); CHLORIDE 93 mmol/L (98-107); COSMO 276; CREATININE 0.8 mg/dL (0.5-0.9); ESTIMATED GFR > 60; GLUCOSE 95 mg/dL (70-104); POTASSIUM 5.3 mmol/L (3.5-5.1); SODIUM 135 mmol/L (136-145); TCO2 35 mmol/L (25-35)
--- NOTE | 2019-05-26 08:48 | Diag Imaging Result Doc PS360 ---
EXAM: CHEST-2 VIEWS 05/26/2019 HISTORY: pneumonia Pl Effusion follow up TECHNIQUE: Two views the chest COMMENT: There are bilateral pleural effusions. The volume of fluid appears to be diminished since 05/23/2019 on the left. There is still atelectasis or pneumonia in the lung bases particularly the left lower lobe. IMPRESSION: Improving pleural effusions. Electronically signed by Driss Portillo 05/26/2019 8:45 AM
--- NOTE | 2019-05-26 11:25 | PROGRESS NOTE ---
DATE: 05/26/2019 Ms. Benites is feeling some better. Her vital signs are stable. Her lungs sound somewhat better. Culture studies are negative. Electrolytes are normal, except for potassium which is 5.3. Chest x-ray shows improvement in bilateral pleural effusions. -3 cc: Angel Lord MD
[2019-05-26] MEDS ORDERED: DULCOLAX PR PRN (12:46)
[2019-05-26] MEDS: MIRALAX PO SCH (12:54)
[2019-05-26] MEDS: ROCEPHIN 2 GM in NS 50 ML IV SCH (21:29)
[2019-05-26] MEDS: AMBIEN PO PRN (21:29)
[2019-05-27] MEDS: DUONEB (A & A) INH SCH ×6 (03:37→22:44)
[2019-05-27] MEDS: NICODERM PATCH TD SCH (09:16)
[2019-05-27] MEDS: LASIX IV SCH (09:16)
[2019-05-27] MEDS: ISOPTIN SR PO SCH (09:16)
[2019-05-27] MEDS: MIRALAX PO SCH (09:16)
[2019-05-27] MEDS: ASPIRIN PO SCH (09:16)
[2019-05-27] MEDS: ZITHROMAX 500 MG/NS 500 MG/250 ML IVPB IV SCH (09:16)
--- NOTE | 2019-05-27 10:02 | PROGRESS NOTE ---
DATE: 05/27/2019 Ms. Benites had a chest x-ray done yesterday which showed improvement. We will continue with the current management on her. We have discussed with the construction controller if there any further plans. -7 cc: Angel Lord MD
[2019-05-27] MEDS: HYDREA PO SCH (18:34)
[2019-05-27] MEDS: AMBIEN PO PRN (20:39)
[2019-05-27] MEDS: ROCEPHIN 2 GM in NS 50 ML IV SCH (20:40)
[2019-05-27] MEDS: PHENERGAN WITH CODEINE LIQUID PO PRN (20:53)
[2019-05-28] MEDS: DUONEB (A & A) INH SCH ×6 (03:39→23:20)
--- NOTE | 2019-05-28 07:23 | Diag Imaging Result Doc PS360 ---
EXAM: CHEST-2 VIEWS INDICATION: Pl effusion TECHNIQUE: 2 views COMPARISON: 05/26/2019 FINDINGS: Bilateral pleural effusions are stable. There is stable mild bibasilar atelectasis plus or minus infiltrate. No new consolidation is identified. Cardiac silhouette is stable. IMPRESSION: Stable chest. Electronically signed by Ervin Davidson 05/28/2019 7:21 AM
[2019-05-28] MEDS: ISOPTIN SR PO SCH (08:25)
[2019-05-28] MEDS: ASPIRIN PO SCH (08:25)
[2019-05-28] MEDS: LASIX PO SCH (08:25)
[2019-05-28] MEDS: NICODERM PATCH TD SCH (08:25)
[2019-05-28] MEDS: ZITHROMAX 500 MG/NS 500 MG/250 ML IVPB IV SCH (08:27)
[2019-05-28 08:59] LABS: AGAP 14; BUN 30 mg/dL (8-22); CALCIUM 9.1 mg/dL (8.8-10.2); CHLORIDE 93 mmol/L (98-107); COSMO 275; CREATININE 0.9 mg/dL (0.5-0.9); ESTIMATED GFR > 60; GLUCOSE 79 mg/dL (70-104); MAGNESIUM 2.2 mg/dL (1.5-2.7); POTASSIUM 4.6 mmol/L (3.5-5.1); SODIUM 135 mmol/L (136-145); TCO2 28 mmol/L (25-35)
[2019-05-28] MEDS: MIRALAX PO SCH (10:46)
--- NOTE | 2019-05-28 11:31 | PROGRESS NOTE ---
DATE: 05/28/2019 Ms. Benites continues to have some bilateral pleural effusion, which is mild. Her lungs are better. Heart sounds are normal. We will change her to Hep-Lock and continue the IV antibiotics today. We will discharge her in the morning if no further plan from cardiology standpoint. -8 cc: Angel Lord MD
[2019-05-28] MEDS: AMBIEN PO PRN (22:41)
[2019-05-29] MEDS: DUONEB (A & A) INH SCH ×2 (03:18→08:04)
[2019-05-29 08:18] VITALS: BP 128/48
[2019-05-29] MEDS: MIRALAX PO SCH (09:12)
[2019-05-29] MEDS: NICODERM PATCH TD SCH (09:13)
[2019-05-29] MEDS: LASIX PO SCH (09:13)
[2019-05-29] MEDS: ASPIRIN PO SCH (09:13)
[2019-05-29] MEDS: ISOPTIN SR PO SCH (09:14)
--- NOTE | 2019-05-29 10:48 | PROGRESS NOTE ---
DATE: 05/29/2019 Ms. Benites is feeling better. Her lungs sound much clearer now. I do not see any further recommendation from cardiology department. She has both pneumonia and congestive heart failure. We will discharge her today. cc: Angel Lord MD
--- NOTE | 2019-06-01 09:26 | DISCHARGE SUMMARY ---
ADMISSION DATE: 05/20/2019 DISCHARGE DATE: 05/29/2019 Ms. Benites is a 68-year-old white female who was admitted with pneumonia on the right side. Her BNP was elevated and had a loud systolic murmur, had mild congestive heart failure also, along with the pneumonia. IMAGING/PROCEDURES IN THE HOSPITAL: Initial chest x-ray revealed right basilar consolidation with atelectasis. Echocardiography results revealed mild tricuspid regurgitation, normal right ventricular size, mild left atrial enlargement, and normal left ventricular size. End-diastolic dimensions were between 3.8 and 4 cm. There was severe left ventricular hypertrophy with an interventricular septum wall thickness , Hyperdynamic LV systolic function with an estimated EF of greater than 70%. No pericardial effusion was noted. Microbiology cultures were negative. Flu test was also negative. Chest x-ray was repeated and the final chest x-ray revealed that bilateral pleural effusions were stable. LABORATORY DATA: Revealed a white count initially was 21.69, repeat white count was 16.96, hemoglobin went down from 12.7 to 10.4. INR was 1.12. Blood gases revealed pH 7.37, pCO2 51, pO2 was 58. Electrolytes were normal. BUN and creatinine were normal. Protein electrophoresis revealed total proteins 5.6. Albumin was low 3.0. Alpha 1 globulin was slightly high, upper limit is 0.41 and hers was 0.43. Rest of the proteins were normal. There was no monoclonal band identified. TSH was 1.69. Urinalysis was negative. COURSE IN THE HOSPITAL: She was given IV antibiotics and IV Lasix was given. Cardiology consult was made. She has hypertrophic cardiomyopathy. Dr Bryant will do the testing at a later date when her other problems are resolved. She has a history of polycythemia. We will discharge her today and give her a prescription of Levaquin and Lasix. cc: Angel Lord MD [facility]
== END 2019-05-29 11:08 | disposition home or self-care (01) | DRG 291 ==
LOC: SUPCPDRO → ED 09:16 → 3N 11:33
PROVIDERS: ADMIT Internal Medicine; ATTEND Internal Medicine